=== PATIENT | male | born 1985 | race Two or more races ===

== ENCOUNTER 2018-11-28 17:43 | Emergency (ER) | payer SELFPAY ==
[~2018-11-28] VITALS: Ht 167.6 cm; Wt 74.8 kg
[2018-11-28 20:42] VITALS: BP 112/71
[2018-11-28] MEDS ORDERED: TETANUS-DIPTH-ACEL PERTUSSIS 0.5ML SYRG IM ONE (21:00)
[2018-11-28] MEDS ORDERED: cefTRIAXone SOD 1,000 MG VL IM ONE (21:00)
[2018-11-28] MEDS ORDERED: SILVER SULFADIAZINE 1 % TOPICAL CREAM 50GM TOP ONE (21:00)
[2018-11-28] MEDS ORDERED: ACETAMINOPHEN/CODEINE#3 (300/30mg) TAB PO ONE (21:00)
== END 2018-11-28 21:40 | disposition home or self-care (01) ==
LOC: ER 17:43
DX: T24.021A Burn of unspecified degree of right knee, initial encounter (principal); X12.XXXA Contact with other hot fluids, initial encounter; Y93.89 Activity, other specified; Y99.0 Civilian activity done for income or pay; Y92.69 Other specified industrial and construction area as the place of occurrence of the external cause
CPT/HCPCS: 73562; 90471; 90715; 96372; 99283; J0696